=== PATIENT | male | born 1985 | race Caucasian/White ===

== ENCOUNTER 2021-04-18 17:48 | Emergency (ER) | payer OTHER, SELFPAY ==
[2021-04-18] VITALS (46 sets, daily range): BP systolic 128–149; BP diastolic 65–101; PULSE 62–79; RESP 11–35; TEMP 36.7; O2SAT 95–100
--- NOTE | 2021-04-18 17:45 | RT.EKG_ITS ---
APPROVED REPORT Exam: Resting ECG Reason for Exam: unresponsive episode Patient Location: E HR:66 bpm ECG Measurements Heart Rate 66 AXIS HI 167 P 35 QRSd 96 QRS -11 QT 408 T 47 QTc 428 Conclusion Sinus rhythm...normal P axis, V-rate 60- 99
[2021-04-18] MEDS: Ondansetron 4 MG/2 ML VIAL (18:11)
[2021-04-18] MEDS: Normal Saline 1,000 ML 1000 ML IV (18:15)
--- NOTE | 2021-04-18 18:15 | DI.CT_ITS ---
Exam(s) CT CHEST/ABD/PEL W EXAM: CT CHEST/ABD/PEL W CLINICAL HISTORY: Chest pain, back pain nausea vomiting. TECHNIQUE: Imaging Protocol: Axial computed tomography images with coronal and sagittal reformatted images were created and reviewed CONTRAST MATERIAL: Intravenous: Omnipaque 350 Contrast volume:100 ml Oral: None COMPARISON: No exams were available for comparison FINDINGS: CHEST: LUNGS: No infiltrates nor pleural effusions. No concerning nodules. No pneumothorax. MEDIASTINUM: There is no hilar nor mediastinal adenopathy. Right thyroid lobe is enlarged and contain s at least 1 large nodule. Smaller nodule at its junction with the isthmus. Left thyroid lobe appea rs unremarkable.Thyroid ultrasound recommended. CARDIAC: Heart size is normal. There is no pericardial effusion.Caliber of the thoracic aorta is wit hin normal limits. OSSEOUS: No significant osseous lesions.No fractures evident. ABDOMEN: There is no ascites. LIVER: No focal hepatic lesions noted. Mild dilatation of intrahepatic ducts, probably related to po st cholecystectomy status GALLBLADDER/BILIARY: Gallbladder surgically absent. CBD is not dilated. PANCREAS: No evidence of pancreatic mass nor dilatation of the pancreatic duct. SPLEEN: Spleen is not enlarged. There are no intrasplenic lesions. Splenic and portal veins are kenney nt. ADRENALS: There are no significant adrenal masses. KIDNEYS: No calculi nor hydronephrosis. No solid renal masses. There is a small cyst in the lateral c ortex of the right kidney. This measures 1 cm diameter. ABDOMINAL AORTA: Abdominal aorta is not enlarged. LYMPH NODES: There is no retroperitoneal nor paraaortic adenopathy. ABDOMINAL WALL: No evidence of significant anterior abdominal wall nor inguinal hernia. GI: The duodenal C loop is dilated. There is no obvious obstructing lesion in the distal duodenum no r significant abnormality superior mesenteric artery takeoff/celiac takeoff points suggest arcuate li gament syndrome. No other extrinsic compression. No obvious mural mass at this level.Small bowel lo ops distal to this level exhibit upper normal diameters. PELVIS: LYMPH NODES: There is no intrapelvic nor inguinal adenopathy. GI: No evidence of appendicitis.No evidence of sigmoid diverticulitis. URINARY BLADDER: There is uniform thickening of the bladder wall. Possibly due to under distension. No radiopaque calculi. REPRODUCTIVE: Prostate not enlarged. Seminal vesicles unremarkable. OSSEOUS: No significant osseous lesions. No fractures. IMPRESSION: 1. No significant pulmonary findings. No pleural effusions. 2. Enlarged abnormal right thyroid lobe which contains significant nodules. Thyroid ultrasound is re commended. 3. Gallbladder surgically absent. Mild dilatation of intrahepatic ducts is most probably related to post cholecystectomy status. 4. Dilatation of the duodenal C-loop noted. No obstructing lesion seen within the distal duodenum an d no evidence of extrinsic compression. Suspect adynamic ileus. Uniform bladder wall thickening. This may be just related to lack of distension but cannot exclude t he possibility of cystitis; less likely neoplasm. RADIATION DOSE DELIVERED: 1,760.3mGy.cm Total DLP DATA REPOSITORY: All CT scans at this facility are submitted to the National Radiology Data Registry (NRDR) Dose Index Registry (DIR) with the [employer] (A[employer]). RADIATION OPTIMIZATION: All CT scans at this facility use at least one of these dose optimization te chniques: automated exposure control; mA and/or kV adjustment per patient size (includes targeted exa ms where dose is matched to clinical indication); or iterative reconstruction.
[2021-04-18 18:28] LABS: Abs Immature Grans 0.04 10^3/uL (0.0-0.06); Absolute Basophil Count 0.05 10^3/uL (0.0-0.2); Absolute Eosinophil Count 0.03 10^3/uL (0.0-0.7); Absolute Monocyte Count 0.48 10^3/uL (0.1-0.8); Absolute Neutrophil Count 8.34 10^3/uL (1.2-6.7); Basophils % 0.5; Eosinophils % 0.3; HCT 43.2 % (40.0-50.0); HGB 14.2 g/dL (13.5-17.5); Immature Grans % 0.4; Lymphocytes % 9.1; MCH 27.3 pg (27.0-33.0); MCHC 32.9 % (32.0-36.0); MCV 82.9 fL (80-95); MPV 8.5 fL (8.0-11.0); Monocytes % 4.9; Neutrophils % 84.8; Nucleated RBC 0 %; Platelet Count 485 10^3/uL (130-400); RBC 5.21 10^6/uL (4.36-5.78); RDW 12.1 % (11.8-14.1); RDW-SD 37.2 fL; WBC 9.84 10^3/uL (4.4-10.8)
--- NOTE | 2021-04-18 18:43 | ED.GENADUL_ITS ---
Discharge Plan Disposition Patient Dis[facility] Condition: Stable Discharge Details Clinical Impression: Acute drug withdrawal syndrome, Nausea & vomiting Primary Care Provider: None,None ED Provider: Omid Brennan Home Meds and New Rx's Prescriptions: New prochlorperazine maleate [Compazine] 5 mg tablet 5 mg PO TID PRN (Reason: nausea and vomiting) Qty: 10 RF: 0 Continued clonidine HCl 0.1 mg Tablet 0.1 mg PO BID RF: 0 hydroxyzine HCl 50 mg Tablet 50 mg PO BID RF: 0 ibuprofen 600 mg Tablet 600 mg PO BID RF: 0 Discontinued penicillin V potassium 500 MG tablet 500 mg PO QID Qty: 28 RF: 0 naproxen 500 MG tablet 500 mg PO BID Qty: 15 RF: 0 Discharge Instructions Instructions: Acute Nausea and Vomiting (ED) Additional Instructions: If you develop a persistent fever, new or worsening symptoms, or change in your condition please return for reassessment. Stay well-hydrated and advance diet as tolerated by nausea. Medical Decision Making Patient presenting to the emergency department via EMS due to nausea vomiting brief loss of consciousness and reports of chest pain and back pain while incarcerated. Patient states that he has had similar symptoms in the past when he was withdrawing. Patient reports IV drug use and daily alcohol use with last drink 2 days ago and states IV drug use in the last week but does not remember Patient does report that he had similar symptoms when he had endocarditis but not exactly the same. I suspect that patient is having withdrawal symptoms.. Reviewed nursing documentation but also shows that detention nurse did not feel that patient had loss of consciousness but is more behavioral and actions with possible withdrawal symptoms but does not believe patient had full loss of consciousness and reports that patient was never febrile at detention. Patient reassessed and remained stable with no appreciated murmurs, lunchroom monitor did not show any arrhythmias during visit. Labs reviewed and initial labs show no elevation of troponin, no elevated WBCs, normal ESR, and labs otherwise nondiagnostic nonworrisome. Given this I further doubt that patient has endocarditis and further suspect withdrawal symptoms. EKG reviewed with provider and shows no acute signs of ischemia and is nondiagnostic. We will CT imaging shows incidental findings that were discussed with patient but otherwise I do not feel that any of these are contributing to patient's presentation. Review of second troponin along with EKG is and reassessment of patient is continue to reassurance and patient is having no further vomiting or emesis and was able to tolerate p.o. meds along with fluids. Given nonworrisome work-up I do feel that patient is able to be safely discharged back to correctional facility for them to continue to monitor his condition but given negative cardiac work-up with no arrhythmias noted, benign laboratory work-up, and patient now tolerating p.o. I do not see a life-threatening condition at time of discharge After discussion of diagnosis and plan of care patient has no further needs, questions, or concerns and states clear understanding to return to the emergency department for any worsening symptoms. HPI General Mode of arrival: EMS . Date/Time Provider Initiated Documentation: 04/18/21 18:04 . Limitations to Documentation: no limitations . Information obtained by: patient and EMS . History of Present Illness 36 year old M presents to the emergency department with the chief complaint of Chest pain, back pain, N/V, described as severe and similar to prior episodes, with intensity rated at 9. Quality is described as aching, sharp and constant, and is localized to the chest and back. Patient reports no radiation. Patient started experiencing this day(s) (2) and it has been constant. No relieving factors improve symptom(s), Movement worsens symptoms . Patient notes nausea/vomiting. Patient did receive the following treatments prior to arrival, none Related Data Home Medications Medication Instructions Recorded Confirmed clonidine HCl 0.1 mg PO BID 04/18/21 04/18/21 hydroxyzine HCl 50 mg PO BID 04/18/21 04/18/21 ibuprofen 600 mg PO BID 04/18/21 04/18/21 prochlorperazine maleate 5 mg PO TID PRN #10 tab 04/18/21 [Compazine] Previous Rx's Medication Instructions Recorded prochlorperazine maleate 5 mg PO TID PRN #10 tab 04/18/21 [Compazine] Allergies Allergy/AdvReac Type Severity Reaction Status Date / Time codeine Allergy Intermediate vommiting Unverified 04/18/21 18:28 General Stated Complaint: DrugWithdr/MAT XOCHITL: 2 Review of Systems Constitutional Constitutional: Denies chills, Reports fever(s) (Subjective), Denies headache(s) and Reports malaise ENT Ears, Nose, Mouth, and Throat: Denies headache(s) Cardiovascular Cardiovascular: Reports as per HPI, Reports chest pain, Denies chest pain with activity, Denies irregular heart rhythm and Denies dyspnea Respiratory Respiratory: Denies cough, Denies hemoptysis and Denies dyspnea Gastrointestinal Gastrointestinal: Denies abdominal pain, Reports nausea and Reports vomiting Musculoskeletal Musculoskeletal: Reports back pain and Denies numbness Integumentary/Breasts Skin/Breast: Denies rash Neurologic Neurologic: Denies headache(s), Denies numbness and Denies paresthesias PFSH All Active Problems (Updated 04/18/21 @ 22:08 by Omid Brennan NP) Acute drug withdrawal syndrome (Acute) Nausea & vomiting (Acute) Medical History (Updated 04/18/21 @ 22:08 by Omid Brennan NP) Drug abuse Social History Smoking/Tobacco Use Status: Former Tobacco Use Smoking risk assessment performed?: Yes Drug use: Daily Details: fentanyl and cocaine-smokes it. Exam Const General: cooperative, comfortable, no acute distress and not diaphoretic Nutritional Appearance: average body habitus Orientation: alert, awake and oriented x3 Limitations: mental status not altered Neck Neck: normal visual inspection, full ROM, trachea midline, supple and no anterior neck swelling Thyroid: thyroid normal Carotids: normal carotid upstroke and no bruits Chest Chest: normal inspection of the chest Resp Effort & Inspection: normal respiratory effort and able to speak in complete sentences Auscultation: clear to auscultation bilaterally Cardio Jugular venous pressure: no JVD Palpation: normal PMI Rate: regular rate Rhythm: regular rhythm Heart Sounds: S1 normal, S2 normal, no click, no gallops, no murmurs and no rubs Bruits: no abdominal aortic bruits and no carotid bruits Pulses: radial pulses present bilaterally 2+ GI Inspection: normal to inspection Palpation: soft, no aortic enlargement, no pulsatile masses and tender (Diffuse nonfocal) Auscultation: normal bowel sounds Back/Spine/Pelvis Back: no CVA tenderness, No erythema, No warmth and back tenderness (Midline tenderness to lower thoracic and upper lumbar) Skin General skin exam: no rashes or lesions noted Neuro General: patient alert, patient awake, patient oriented x3, tone normal and moves all extremities Psych Mental Status: mental status grossly normal Speech and Movement: speech and movement normal Affect: indifferent and blunted Attitude: guarded Thought Process: normal Thought Content: normal Course Vital Signs Vital signs: Vital Signs Respiratory Rate 12 04/18/21 17:49 Temperature 36.7 C 04/18/21 17:51 Temperature Source Skin 04/18/21 17:51 Pulse 67 04/18/21 18:16 Pulse 67 04/18/21 18:16 Respiratory Rate 20 04/18/21 18:16 Respiratory Effort Non-Labored 04/18/21 17:51 Respiratory Pattern Normal 04/18/21 18:13 Blood Pressure 137/70 04/18/21 18:16 Blood Pressure Mean 84 04/18/21 18:16 Blood Pressure Position Supine 04/18/21 17:51 Pulse Oximetry 97 04/18/21 18:16 Oxygen Delivery Method Room Air 04/18/21 17:51 Oxygen Flow Rate 0 04/18/21 17:51 Pain Level 9 04/18/21 17:51 Lab/Test Results Lab/Test Results: 04/18/21 18:15 Blood Blood Culture - Pending 04/18/21 18:15 Blood Blood Culture - Pending Laboratory Tests Range/Units 04/18/21 18:00 WBC (4.4-10.8) 10^3/uL 9.84 RBC (4.36-5.78) 10^6/uL 5.21 Hgb (13.5-17.5) g/dL 14.2 Hct (40.0-50.0) % 43.2 MCV (80-95) fL 82.9 MCH (27.0-33.0) pg 27.3 MCHC (32.0-36.0) % 32.9 RDW (11.8-14.1) % 12.1 Plt Count (130-400) 10^3/uL 485 H MPV (8.0-11.0) fL 8.5 Immature Gran % 0.4 Neutrophils % 84.8 Lymphocytes % 9.1 Monocytes % 4.9 Eosinophils % 0.3 Basophils % 0.5 Nucleated RBC % % 0 Absolute Neutrophils (1.2-6.7) 10^3/uL 8.34 H Absolute Lymphocytes (1.2-3.4) 10^3/uL 0.90 L Absolute Monocytes (0.1-0.8) 10^3/uL 0.48 Absolute Eosinophils (0.0-0.7) 10^3/uL 0.03 Absolute Basophils (0.0-0.2) 10^3/uL 0.05 PAWSS Have you Been Recently Intoxicated or Drunk Within the Last 30 days?: Yes Have you Ever Experienced Previous Episodes of Alcohol Withdrawal?: Yes Have you ever Experienced Withdrawal Seizures?: Yes Have you ever Experienced Delirium Tremens(DT)s?: Yes Have you ever undergone Alcohol Rehabilitation Treatment (i.e, inpt ot outpatient treatment programs)?: Yes Have you ever Experienced Blackouts?: Yes Have you ever Combined Alcohol with other Downers within the last 90 days?: Yes Have you ever Combined Alcohol with any other Substance of Abuse during the last 90 days?: Yes Positive Blood Alcohol level on Presentation? [PCS.BAL]: Yes Evidence of Increased Autonomic Activity (i.e. HR>120, tremor, sweating, agitation, nausea)?: Yes Result: 10
[2021-04-18 18:45] LABS: Bilirubin Negative (Negative); Blood Negative (Negative); Clarity Cloudy (Clear); Glucose Negative (Negative); Ketones >=160 mg/dL (Negative); Leukocyte Esterase Negative (Negative); Nitrite Negative (Negative); Urobilinogen 0.2 EU/dL (Up TO 0.2); pH 8.5 (5-8)
[2021-04-18 18:47] LABS: ALT 28 U/L (16-63); AST 20 U/L (15-37); Alkaline Phosphatase 64 U/L (46-116); Anion Gap 9.4 mmol/L (3-11); BUN 19 mg/dL (7-18); Bilirubin, Total 0.6 mg/dL (0.2-1.0); CO2 29.6 mmol/L (21.0-32.0); Calcium 9.4 mg/dL (8.5-10.1); Chloride 102 mmol/L (98-107); Glucose 102 mg/dL (74-106); Lipase 147 U/L (73-393); Magnesium 2.4 mg/dL (1.8-2.4); Potassium 3.4 mmol/L (3.5-5.1); Sodium 141 mmol/L (136-145); Total Protein 8.4 g/dL (6.4-8.2); Troponin I < 50 ng/L (<or=60)
[2021-04-18 18:56] LABS: Salicylate < 2.8 mg/dL (<2.8)
[2021-04-18 19:05] LABS: Acetaminophen < 2 ug/mL (10-30)
[2021-04-18 19:15] LABS: Tricyclic Antidepressants Negative (Negative)
[2021-04-18] MEDS: Omnipaque 350 MG/ML 100 ML BTL IJ (19:16)
[2021-04-18] MEDS: Normal Saline Flush 10 ML SYR IVP (19:17)
[2021-04-18 19:23] LABS: *AMPHETAMINES SCREEN URINE Negative (Negative); *BARBITURATES SCREEN URINE Negative (Negative); *BENZODIAZEPINES SCREEN URINE Negative (Negative); Cannabinoids THC Negative (Negative); Cocaine Screen,Urine Positive (Negative); METHADONE URINE SCREEN Negative (Negative); OPIATES URINE SCREEN Negative (Negative)
--- NOTE | 2021-04-18 19:53 | NUR.NOTE ---
Nursing Note: Received report from RN at correctional facility prior to patient's arrival. Per the RN, the patient arrived as an inmate last evening and has history of cocaine and fentanyl use. He had intermittent vomiting throughout the night and this afternoon it was noted by a dispatch officer that the patient appeared to go unresponsive. RN reports that upon medical arrival to the unit, the patient's eyes were open and responding to verbal stimuli.The CO felt that this was unresponsive as the patient was responding verbally and the RN educated the CO that it was not considered unresponsive. RN reports that there was an order for Hydroxyzine and Clonodine ordered for withdrawal but never administered. RN: Sanna at [facility].
[2021-04-18] MEDS: cloNIDine 0.1 MG TAB PO (19:58)
[2021-04-18] MEDS: hydrOXYzine HCL 25 MG TAB 50 MG PO (19:58)
--- NOTE | 2021-04-18 20:07 | DI.VRAD_ITS ---
PROCEDURE INFORMATION: Exam: CT Chest With Contrast; Diagnostic Exam date and time: 04/18/2021 6:21 PM Age: 36 years old Clinical indication: Other: Chest pain, back pain nausea vomiting TECHNIQUE: Imaging protocol: Diagnostic computed tomography of the chest with contrast. 3D rendering (Not supervised by radiologist): MIP and/or 3D reconstructed images were created by the technologist. COMPARISON: No relevant prior studies available. FINDINGS: Thyroid: There is a cystic nodule of the right thyroid lobe measuring approximately 1.8 cm in average diameter. The right thyroid lobe appears enlarged. Lungs: Unremarkable. No consolidation. No masses. Pleural spaces: Unremarkable. No pneumothorax. No pleural effusion. Heart: Unremarkable. No cardiomegaly. No pericardial effusion. Aorta: Unremarkable. No aortic aneurysm. Lymph nodes: Unremarkable. No enlarged lymph nodes. Bones/joints: Unremarkable. No acute fracture. Soft tissues: Unremarkable. IMPRESSION: Enlarged right thyroid lobe containing a cystic nodule. Further evaluation with thyroid ultrasound is recommended. PROCEDURE INFORMATION: Exam: CT Abdomen And Pelvis With Contrast Exam date and time: 04/18/2021 6:21 PM Age: 36 years old Clinical indication: Other: Chest pain, back pain nausea vomiting TECHNIQUE: Imaging protocol: Computed tomography of the abdomen and pelvis with contrast. 3D rendering (Not supervised by radiologist): MIP and/or 3D reconstructed images were created by the technologist. COMPARISON: No relevant prior studies available. FINDINGS: Liver: Normal. No mass. Gallbladder and bile ducts: The gallbladder is surgically absent. Pancreas: Normal. No ductal dilation. Spleen: Normal. No splenomegaly. Adrenal glands: Normal. No mass. Kidneys and ureters: Normal. No hydronephrosis. Stomach and bowel: The 2nd portion of the duodenum is fluid-filled and mildly dilated. The gap between the aorta and superior mesenteric artery appears normal measuring 9 mm at the level of the 3rd portion the duodenum. Appendix: No evidence of appendicitis. Intraperitoneal space: Unremarkable. No free air. No significant fluid collection. Vasculature: Unremarkable. No abdominal aortic aneurysm. Lymph nodes: Unremarkable. No enlarged lymph nodes. Urinary bladder: Thickened wall of the urinary bladder. Reproductive: Unremarkable as visualized. Bones/joints: Unremarkable. No acute fracture. Soft tissues: Unremarkable. IMPRESSION: 1. Status post cholecystectomy. 2. Dilatation of the 2nd portion the duodenum. No obstructing lesion is identified within the 3rd portion the duodenum. A focal adynamic ileus is suspected. 3. Urinary bladder wall thickening. This may be artifact due to lack of distention. However, cystitis or neoplasm cannot be excluded. Dictated and Authenticated by: Heri Membreno MD. Ordering:NASRIN Anne MD
--- NOTE | 2021-04-18 20:30 | RT.EKG_ITS ---
APPROVED REPORT Exam: Resting ECG Reason for Exam: sob Patient Location: E HR:64 bpm ECG Measurements Heart Rate 64 AXIS ME 166 P 29 QRSd 96 QRS -10 QT 412 T 50 QTc 427 Conclusion Sinus rhythm...normal P axis, V-rate 60- 99
[2021-04-18 20:41] LABS: ESR 10 mm/hr (0-15)
[2021-04-18 20:46] LABS: ETHANOL BLOOD < 3.0 mg/dL (<10)
[2021-04-18 21:02] LABS: C-Reactive Protein 0.06 mg/dL (0.0-0.3); NT-proBNP 144 pg/mL (<300)
[2021-04-18 21:55] LABS: Troponin I < 50 ng/L (<or=60)
[2021-04-18] MEDS: Prochlorperazine 5 MG TAB PO (21:58)
== END 2021-04-18 22:16 | disposition home or self-care (01) ==
PROVIDERS: Emergency Provider Nurse Practitioner Family
DX: F11.13 Opioid abuse with withdrawal (principal); F14.10 Cocaine abuse, uncomplicated; R07.9 Chest pain, unspecified; M54.9 Dorsalgia, unspecified; R11.2 Nausea with vomiting, unspecified; R55 Syncope and collapse
CPT/HCPCS: 36415; 74177; 80053; 80307; 83690; 85652; 87040; 93005; 96361; 96374; 99285; 71260; 80320; 80329; 81003; 83735; 83880; 84484; 85025; 86140; 93010; 99284; J2405; J3490